=== PATIENT | female | born 1995 | race Caucasian/White ===

== ENCOUNTER 2017-01-16 17:10 | Emergency (ER) | payer OTHER, BC ==
[~2017-01-16] VITALS: Ht 157.5 cm; Wt 89.0 kg
[~2017-01-16 17:10] MED LIST: CLON-352 PO; IBUP600 PO; LABE200 PO; OXYC1SOL5 PO; PERC5TAB12 PO; PERI8.6T PO; PRIL20TA2 PO
[2017-01-16 17:12] VITALS: BP 145/99; PULSE 115; RESP 16; TEMP 97.7; O2SAT 99
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
[2017-01-16] MEDS ORDERED: IBUP800T23 PO (17:34)
[2017-01-16] MEDS ORDERED: ORPH100T99 PO (17:34)
[2017-01-16] MEDS ORDERED: TRAM50TA PO (17:34)
== END 2017-01-16 17:55 | disposition home or self-care (01) ==
LOC: PHEFT 17:10
DX: S16.1XXA Strain of muscle, fascia and tendon at neck level, initial encounter (principal); I10 Essential (primary) hypertension; K21.9 Gastro-esophageal reflux disease without esophagitis; R51 Headache; V43.52XA Car driver injured in collision with other type car in traffic accident, initial encounter; Y93.89 Activity, other specified; Y92.410 Unspecified street and highway as the place of occurrence of the external cause; Y99.9 Unspecified external cause status
CPT/HCPCS: 99283

== ENCOUNTER 2017-01-17 14:47 | Emergency (ER) | payer OTHER, BC ==
[~2017-01-17] VITALS: Ht 160 cm; Wt 90.0 kg
[~2017-01-17 14:47] MED LIST changes: -CLON-352 PO; -IBUP600 PO; +IBUP800T23 PO; -LABE200 PO; +ORPH100T99 PO; -OXYC1SOL5 PO; -PERC5TAB12 PO; -PERI8.6T PO; -PRIL20TA2 PO; +TRAM50TA PO
[2017-01-17 14:58] VITALS: BP 131/74; PULSE 83; RESP 15; TEMP 98.1; O2SAT 98
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
[2017-01-17] MEDS ORDERED: CYCLOBENZAPRINE HCL 10 MG TAB PO ONE (16:45)
[2017-01-17] MEDS ORDERED: IBUPROFEN 800 MG TAB PO ONE (16:45)
[2017-01-17] MEDS ORDERED: traMADol HCL 50 MG TAB PO ONE (16:45)
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
== END 2017-01-17 17:30 | disposition home or self-care (01) ==
LOC: PHEFT 14:47
DX: S16.1XXD Strain of muscle, fascia and tendon at neck level, subsequent encounter (principal); R20.2 Paresthesia of skin; R51 Headache; M25.512 Pain in left shoulder; R20.0 Anesthesia of skin; I10 Essential (primary) hypertension; Z86.79 Personal history of other diseases of the circulatory system; Z87.19 Personal history of other diseases of the digestive system; Z86.59 Personal history of other mental and behavioral disorders; V89.2XXD Person injured in unspecified motor-vehicle accident, traffic, subsequent encounter
CPT/HCPCS: 72125; 84703

== ENCOUNTER 2017-02-25 14:56 | Emergency (ER) | payer OTHER, BC ==
[~2017-02-25] VITALS: Ht 160 cm; Wt 89.6 kg
[2017-02-25 14:57] VITALS: BP 129/88; PULSE 112; RESP 15; TEMP 98.1; O2SAT 98
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
[2017-02-25] MEDS ORDERED: MOBI15TA PO (15:57)
[2017-02-25 16:09] VITALS: BP 122/73
--- NOTE | 2017-02-26 17:30 | EKG ---
Date Performed: 02/25/2017 Time Performed: 15:36:54 PTAGE: 21 years EKG: Sinus rhythm Normal ECG PREVIOUS TRACING : 07/30/2015 03.06 Compared to prior tracing no significant change DOCTOR: Hayden Kwon Interpretating Date/Time 02/26/2017 17:29:10
== END 2017-02-25 16:10 | disposition home or self-care (01) ==
LOC: PHEFT 14:56
DX: R07.89 Other chest pain (principal); R42 Dizziness and giddiness; R51 Headache; F90.9 Attention-deficit hyperactivity disorder, unspecified type; F32.9 Major depressive disorder, single episode, unspecified; I10 Essential (primary) hypertension; K21.9 Gastro-esophageal reflux disease without esophagitis; F43.10 Post-traumatic stress disorder, unspecified
CPT/HCPCS: 71010; 93005; 99284

== ENCOUNTER 2017-07-11 13:06 | Emergency (ER) | payer BC, OTHER ==
[~2017-07-11] VITALS: Ht 160 cm; Wt 92.8 kg
[~2017-07-11 13:06] MED LIST changes: -IBUP800T23 PO; +MOBI15TA PO; -ORPH100T99 PO; -TRAM50TA PO
[2017-07-11 13:21] VITALS: BP 134/69; PULSE 100; RESP 20; TEMP 98.7; O2SAT 99
[2017-07-11] MEDS ORDERED: BACIOIN25 LEFT EYE (14:39)
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
[2017-07-11] MEDS ORDERED: CIPR0.3S2 EACH EYE (14:44)
[2017-07-11 14:56] VITALS: BP 127/74
== END 2017-07-11 14:58 | disposition home or self-care (01) ==
LOC: PHED 13:06 → PHEFT 14:58
DX: H18.822 Corneal disorder due to contact lens, left eye (principal); I10 Essential (primary) hypertension
CPT/HCPCS: 99283

== ENCOUNTER 2017-10-01 19:53 | Emergency (ER) | payer BC, OTHER ==
[~2017-10-01 19:53] MED LIST changes: +CIPR0.3S2 EACH EYE; -MOBI15TA PO
[2017-10-01 19:54] VITALS: BP 150/90; PULSE 92; RESP 16; TEMP 98.2; O2SAT 100
[2017-10-01] MEDS ORDERED: KETOROLAC TROMETHAMINE 30 MG/ML (IVP) VIAL IV PUSH ONE (21:45)
--- NOTE | 2017-10-01 21:52 | PD ---
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 Patient states that she had an IUD placed [address] Weiss with [facility]. Patient states that she realizes that she was at risk for abdominal cramping and bleeding but she feels that this is much heavier more intense than she expected. She states that she passed a large blood clot earlier today. She denies any fever. No nausea, vomiting, urinary symptoms. He states that she has had some lower back pain. She denies any vaginal discharge or abnormal bleeding prior to the placement of her IUD. PFSH Past Medical History ADD: Yes ADHD: Yes Anxiety: Yes Depression: Yes Cardiovascular Problems: Yes (HTN) Developmental Delay: No Diminished Hearing: No Gastrointestinal Disorders: Yes (HX ABD PAIN/ UPPER GI DONE) GERD: Yes Hypertension: Yes Psychiatric: Yes (PTSD) Immunizations Current: Yes ?: Not LMP: now : 0 Para: 0 Miscarriage: 0 : 0 Past Surgical History Section: Yes Other Surgery: Yes (UPPER GI) Social History Alcohol Use: No Tobacco Use: No Substance Use: Yes (pot past) Allergies-Medications (Allergen,Severity, Reaction): Coded Allergies: No Known Allergies (Verified Adverse Reaction, Unknown, 10/01/17) Reported Meds & Prescriptions Reported Meds & Active Scripts Active Metronidazole Vaginal Gel 0.75 % Gel 1 Appl VAGINAL HS [address] (Diclofenac Sodium) 50 Mg Tabdr 50 Mg PO TID Review of Systems General / Constitutional: No: Fever Eyes: No: Visual changes HENT: No: Headaches Cardiovascular: No: Chest Pain or Discomfort Respiratory: No: Shortness of Breath Gastrointestinal: No: Nausea, Vomiting, Abdominal Pain Genitourinary: Positive: Pelvic Pain, Dysmenorrhea, Vaginal Bleeding, No: Urgency, Frequency, Dysuria, Discharge Musculoskeletal: Positive: Pain (lower back pain) Skin: No Rash Neurologic: No: Weakness Psychiatric: No: Depression Endocrine: No: Polydipsia Hematologic/Lymphatic: No: Easy Bruising Physical Exam Narrative GENERAL: Well-developed, well-nourished in no apparent distress. Nontoxic appearing. HEAD: Normocephalic, atraumatic. EYES: Pupils equal round and reactive. Extraocular motions intact. No scleral icterus. No injection or drainage. ENT: Nose clear. Throat without erythema, tonsillar hypertrophy or exudate. Uvula midline. Airway patent. NECK: Trachea midline. Supple, nontender, moves head freely. No central bony tenderness or spasm. CARDIOVASCULAR: Regular rate and rhythm without murmurs, gallops, or rubs. RESPIRATORY: Clear to auscultation. Breath sounds equal bilaterally. No wheezes , rales, or rhonchi. GASTROINTESTINAL: Abdomen soft, non-tender, nondistended. No hepato-splenomegaly , or palpable masses. No guarding. EXTREMITIES: No clubbing, cyanosis, or edema. No joint tenderness. BACK: Nontender without deformity. No flank tenderness. NEUROLOGICAL: Awake, alert and oriented x 3 .Cranial nerves grossly intact. Motor and sensory grossly within normal limits. Normal speech. Data Data Last Documented VS Vital Signs Date Time Temp Pulse Resp B/P (MAP) Pulse Ox O2 Delivery O2 Flow Rate FiO2 10/01/17 19:54 98.2 92 16 150/90 (110) 100 Room Air Orders Orders Complete Blood Count With Diff (10/01/17 21:43) Basic Metabolic Panel (Bmp) (10/01/17 21:43) Urinalysis - C+S If Indicated (10/01/17 21:43) Iv Access Insert/Monitor (10/01/17 21:43) Ed Urine Pregnancytest Poc (10/01/17 21:43) Ketorolac Inj (Toradol Inj) (10/01/17 21:45) Urine Culture (10/01/17 22:00) Gc And Chlamydia Pcr (10/01/17 22:49) Wet Prep Profile (10/01/17 22:49) Ed Discharge Order (10/01/17 23:10) Labs Laboratory Tests Test 10/01/17 22:00 10/01/17 23:05 White Blood Count 13.6 TH/MM3 Red Blood Count 4.36 MIL/MM3 Hemoglobin 13.1 GM/DL Hematocrit 38.5 % Mean Corpuscular Volume 88.5 FL Mean Corpuscular Hemoglobin 30.1 PG Mean Corpuscular Hemoglobin Concent 34.0 % Red Cell Distribution Width 13.6 % Platelet Count 299 TH/MM3 Mean Platelet Volume 9.2 FL Neutrophils (%) (Auto) 71.0 % Lymphocytes (%) (Auto) 21.3 % Monocytes (%) (Auto) 6.0 % Eosinophils (%) (Auto) 1.1 % Basophils (%) (Auto) 0.6 % Neutrophils # (Auto) 9.6 TH/MM3 Lymphocytes # (Auto) 2.9 TH/MM3 Monocytes # (Auto) 0.8 TH/MM3 Eosinophils # (Auto) 0.1 TH/MM3 Basophils # (Auto) 0.1 TH/MM3 CBC Comment DIFF FINAL Differential Comment Urine Color YELLOW Urine Turbidity HAZY Urine pH 7.0 Urine Specific [place] 1.024 Urine Protein 30 mg/dL Urine Glucose (UA) NEG mg/dL Urine Ketones NEG mg/dL Urine Occult Blood LARGE Urine Nitrite NEG Urine Bilirubin NEG Urine Urobilinogen LESS THAN 2.0 MG/DL Urine Leukocyte Esterase LARGE Urine RBC /hpf Urine WBC 24 /hpf Urine Squamous Epithelial Cells 12 /hpf Urine Bacteria OCC /hpf Urine Mucus FEW /lpf Microscopic Urinalysis Comment CULTURE INDICATED Blood Urea Nitrogen 14 MG/DL Creatinine 0.69 MG/DL Random Glucose 87 MG/DL Calcium Level 9.5 MG/DL Sodium Level 141 MEQ/L Potassium Level 3.7 MEQ/L Chloride Level 104 MEQ/L Carbon Dioxide Level 26.9 MEQ/L Anion Gap 10 MEQ/L Estimat Glomerular Filtration Rate 110 ML/MIN Clue Cells (Wet Prep) PRESENT Vaginal Trichomonas (Wet Prep) NONE SEEN Vaginal Yeast (Wet Prep) NONE SEEN MDM Medical Decision Making Medical Screen Exam Complete: Yes Emergency Medical Condition: Yes Medical Record Reviewed: Yes Interpretation(s) Wet prep: Positive clues. No yeast or Trichomonas Laboratory Tests Test 10/01/17 22:00 White Blood Count 13.6 TH/MM3 Red Blood Count 4.36 MIL/MM3 Hemoglobin 13.1 GM/DL Hematocrit 38.5 % Mean Corpuscular Volume 88.5 FL Mean Corpuscular Hemoglobin 30.1 PG Mean Corpuscular Hemoglobin Concent 34.0 % Red Cell Distribution Width 13.6 % Platelet Count 299 TH/MM3 Mean Platelet Volume 9.2 FL Neutrophils (%) (Auto) 71.0 % Lymphocytes (%) (Auto) 21.3 % Monocytes (%) (Auto) 6.0 % Eosinophils (%) (Auto) 1.1 % Basophils (%) (Auto) 0.6 % Neutrophils # (Auto) 9.6 TH/MM3 Lymphocytes # (Auto) 2.9 TH/MM3 Monocytes # (Auto) 0.8 TH/MM3 Eosinophils # (Auto) 0.1 TH/MM3 Basophils # (Auto) 0.1 TH/MM3 CBC Comment DIFF FINAL Differential Comment Urine Color YELLOW Urine Turbidity HAZY Urine pH 7.0 Urine Specific [place] 1.024 Urine Protein 30 mg/dL Urine Glucose (UA) NEG mg/dL Urine Ketones NEG mg/dL Urine Occult Blood LARGE Urine Nitrite NEG Urine Bilirubin NEG Urine Urobilinogen LESS THAN 2.0 MG/DL Urine Leukocyte Esterase LARGE Urine RBC /hpf Urine WBC 24 /hpf Urine Squamous Epithelial Cells 12 /hpf Urine Bacteria OCC /hpf Urine Mucus FEW /lpf Microscopic Urinalysis Comment CULTURE INDICATED Blood Urea Nitrogen 14 MG/DL Creatinine 0.69 MG/DL Random Glucose 87 MG/DL Calcium Level 9.5 MG/DL Sodium Level 141 MEQ/L Potassium Level 3.7 MEQ/L Chloride Level 104 MEQ/L Carbon Dioxide Level 26.9 MEQ/L Anion Gap 10 MEQ/L Estimat Glomerular Filtration Rate 110 ML/MIN Differential Diagnosis Differential diagnosis: Dysfunctional uterine bleeding, menorrhagia, UTI Narrative Course IV access is obtained. Routine laboratory tests and urinalysis. Patient given Toradol 30 mg IV. The patient has had improvement of her discomfort. Her exam is reassuring. There is only a small amount of blood in the vault. Patient has no cervical motion tenderness. No adnexal tenderness. Patient is medically stable for discharge. This is menorrhagia due to IUD Procedures Procedure Narrative GENITOURINARY: Normal external genitalia without lesions or erythema. Vaginal vault a small amount of blood but no purulent drainage. Cervical os was closed without drainage. No cervical motion tenderness. Uterus nontender and nonenlarged. Bilateral adnexa nontender without masses. [facility] [employer] was in attendance Diagnosis Primary Impression: Menorrhagia due to intrauterine device (IUD) Additional Impression: Bacterial vaginosis Patient Instructions: General Instructions Additional Instructions: Rest. Increase fluids. Medications as directed. Follow-up with Dr. Weiss your [employer] [employer] [facility]. Call her office in the morning. Return to the ER for any problems Med/Other Pt SpecificInfo: Prescription(s) given Scripts Metronidazole Vaginal Gel (Metronidazole Vaginal Gel) 0.75 % Gel 1 APPL VAGINAL HS for Infection for 5 Days, GM 0 Refills Prov: aSmantha Borja DO 10/01/[address] (Diclofenac Sodium DR) 50 Mg Tabdr 50 MG PO TID, #30 TAB 0 Refills Prov: Samantha Borja DO 10/01/17 Disposition: 01 DISCHARGE HOME Condition: Stable Lucio Garcia Oct 01, 2017 21:52
[2017-10-01 22:29] LABS: AUTOMATED NEUTROPHIL # 9.6 TH/MM3 (1.8-7.7); BASOPHIL # 0.1 TH/MM3 (0-0.2); BASOPHIL % 0.6 % (0.0-2.0); EOSINOPHIL # 0.1 TH/MM3 (0-0.4); EOSINOPHIL % 1.1 % (0.0-4.0); HEMATOCRIT 38.5 % (35.0-46.0); HEMOGLOBIN 13.1 GM/DL (11.6-15.3); LYMPH % 21.3 % (9.0-44.0); LYMPHOCYTE # 2.9 TH/MM3 (1.0-4.8); MEAN CELL VOLUME 88.5 FL (80.0-100.0); MEAN CORPUSCULAR HEMOGLOBIN 30.1 PG (27.0-34.0); MEAN PLATELET VOLUME 9.2 FL (7.0-11.0); MONOCYTE # 0.8 TH/MM3 (0-0.9); PLATELET COUNT 299 TH/MM3 (150-450); RED BLOOD COUNT 4.36 MIL/MM3 (4.00-5.30); RED CELL DISTRIBUTION WIDTH 13.6 % (11.6-17.2); WHITE BLOOD COUNT 13.6 TH/MM3 (4.0-11.0)
[2017-10-01 22:33] LABS: BACTERIA, URINE OCC /hpf; BILIRUBIN, URINE NEG (NEG); BLOOD, URINE LARGE (NEG); GLUCOSE,URINE NEG (NEG); KETONE, URINE NEG (NEG); MUCUS URINE FEW /lpf (OCC); NITRITE,URINE NEG (NEG); SQUAMOUS EPITHELIAL CELL URINE 12 /hpf (0-5); URINE COLOR YELLOW (YELLW/STRAW); URINE LEUKOCYTE ESTERASE LARGE (NEG)
[2017-10-01 22:40] LABS: BICARBONATE 26.9 MEQ/L (21.0-32.0); CALCIUM 9.5 MG/DL (8.5-10.1); CREATININE 0.69 MG/DL (0.50-1.00)
[2017-10-01] MEDS ORDERED: DICL50TA3 PO (23:12)
[2017-10-01] MEDS ORDERED: METR0.7512 VAGINAL (23:22)
== END 2017-10-01 23:52 | disposition home or self-care (01) ==
LOC: NEPD 19:53
DX: N92.0 Excessive and frequent menstruation with regular cycle (principal); N76.0 Acute vaginitis; B96.89 Other specified bacterial agents as the cause of diseases classified elsewhere; Z97.5 Presence of (intrauterine) contraceptive device
CPT/HCPCS: 80048; 81001; 84703; 85025; 87086; 87210; 87491; 87591; 96374; 99284; J1885